=== PATIENT | female | born 1995 | race Two or more races ===

== ENCOUNTER 2020-11-02 22:33 | Emergency (ER) | payer OTHER ==
[~2020-11-02] VITALS: Ht 157.5 cm; Wt 53.5 kg
== END 2020-11-03 02:27 | disposition home or self-care (01) ==
LOC: ER 22:33
DX: N93.8 Other specified abnormal uterine and vaginal bleeding (principal)

== ENCOUNTER 2021-11-17 20:36 | Emergency (ER) | payer OTHER ==
[~2021-11-17] VITALS: Ht 157.5 cm; Wt 52.6 kg
== END 2021-11-18 01:57 | disposition home or self-care (01) ==
LOC: ER 20:36
DX: N93.9 Abnormal uterine and vaginal bleeding, unspecified (principal)

== ENCOUNTER 2022-10-04 18:39 | Emergency (ER) | payer OTHER ==
[~2022-10-04] VITALS: Ht 157.5 cm; Wt 48.1 kg
== END 2022-10-04 22:28 | disposition home or self-care (01) ==
LOC: ER 18:39
DX: R11.10 Vomiting, unspecified (principal); R19.7 Diarrhea, unspecified; A05.9 Bacterial foodborne intoxication, unspecified; Z91.018 Allergy to other foods; Z20.822 Contact with and (suspected) exposure to COVID-19